=== PATIENT | male | born 1975 | race Caucasian/White ===

== ENCOUNTER 2017-05-12 23:06 | Emergency (ER) | payer OTHER, BC ==
[~2017-05-12] VITALS: Ht 177.8 cm; Wt 97.8 kg
[2017-05-13] MEDS ORDERED: MOTRIN600 MG PO (00:33)
[2017-05-13 00:42] VITALS: BP 123/69
== END 2017-05-13 00:42 | disposition home or self-care (01) ==
LOC: EME 23:06
DX: S96.912A Strain of unspecified muscle and tendon at ankle and foot level, left foot, initial encounter (principal); S70.12XA Contusion of left thigh, initial encounter; W17.89XA Other fall from one level to another, initial encounter; Y92.62 Dock or shipyard as the place of occurrence of the external cause; Y99.0 Civilian activity done for income or pay; Z88.0 Allergy status to penicillin
CPT/HCPCS: 73552; 73610; 99281; 99284